=== PATIENT | female | born 1965 | race Caucasian/White ===

== ENCOUNTER → 2020-10-05 | Day surgery (SDC) | payer OTHER ==
[2020-10-03 14:52] LABS: BASOPHILS # (AUTO) 0.1 (0.0-0.1); BASOPHILS % 1.2 % (0.0-1.0); EOSINOPHILS # (AUTO) 0.2 (0.0-0.4); EOSINOPHILS % 2.3 % (0.0-6.0); HEMATOCRIT 45.5 % (34.2-44.1); HEMOGLOBIN 15.2 g/dL (12.0-16.0); LYMPHOCYTES # (AUTO) 3.2 (1.0-3.2); LYMPHOCYTES % 30.9 % (18.0-39.1); MEAN CORPUSCULAR HEMOGLOBIN 29.9 pg (28-32); MEAN CORPUSCULAR HGB CONC 33.4 g/dL (31-35); MEAN CORPUSCULAR VOLUME 89.6 fL (81-99); MONOCYTES # (AUTO) 0.7 (0.2-0.8); MONOCYTES % 6.9 % (4.4-11.3); NEUTROPHILS % 58.3 % (38.7-80.0); PLATELET COUNT 231 x10e3/uL (140-360); RED BLOOD COUNT 5.08 x10e6/uL (3.6-5.1); RED CELL DISTRIBUTION WIDTH 11.9 % (11.7-14.4)
[2020-10-03 15:09] LABS: ANION GAP 14.1 mmol/L (8-16); BLOOD UREA NITROGEN 9 mg/dL (7-26); BUN/CREATININE RATIO 11 (6-25); CALCIUM 9.5 mg/dL (8.4-10.2); CARBON DIOXIDE 28 mmol/L (22-29); CHLORIDE 98 mmol/L (98-107); CREATININE, SERUM 0.84 mg/dL (0.57-1.11); EST GLOMERULAR FILTRATION RATE > 60 ML/MIN (60-); GLUCOSE 230 mg/dL (74-118); POTASSIUM 4.1 mmol/L (3.5-5.1); SODIUM 136 mmol/L (136-145)
[~2020-10-05] MED LIST: ADVIL200 M1 PO; AUGMENTIN 875-1 EACH PO; BUPIVACAINE HCL 0.5% INJ 30 ML VIAL INJ ONE; CEFAZOLIN SOD 1 GM/NS 50ML 100 ML IV ONE; DEXAMETHASONE SOD PHOS INJ 4 MG/ML VIAL ONE; DIOVAN HCT 80-1 EACH PO; FENTANYL CITRATE/PF 100MCG/2 ML INJ ONE; FUROSEMIDE40 MG PO; GLYCOPYRROLATE INJ 0.2 MG/ML VIAL ONE; KETOROLAC TROMETHAMINE 30 MG/ML VIAL ONE; LIDOCAINE HCL 2% LOCAL INJ 5 ML SDV VIAL INJ ONE; METOCLOPRAMIDE HCL 10 MG/2ML VIAL ONE; MIDAZOLAM HCL 2 MG/2 ML VIAL ONE; MULTI-VITAMIN1 EACH PO; NEOSTIGMINE 1 MG/ML 10ML VIAL ONE; ONDANSETRON HCL INJ 2MG/ML 2ML 2 MG/ML VIAL ONE; PHENTERMINE H37.5 M1 PO; PREMARIN0.625 MG PO; PROMETHAZINE HCL (IM) 25 MG/ML VIAL IM ONE; PROPOFOL IV EMULSION 10 MG/ML 20 ML VIAL ONE; ROCURONIUM BROMIDE 10 MG/ML 5ML VIAL IV ONE; SEVOFLURANE INHAL SOLN 250 ML PEN BTL ONE; TYLENOL EXTRA500 MG PO; VALSARTAN-HCTZ1 EACH PO; ZINC SULFATE220 M1 PO
[2020-10-05 14:40] VITALS: BP 123/77
== END | disposition home or self-care (01) ==
LOC: OR 06:28
PROVIDERS: ATTEND Podiatrist Foot Surgery
DX: M77.32 Calcaneal spur, left foot (principal); S86.012A Strain of left Achilles tendon, initial encounter; J42 Unspecified chronic bronchitis; I10 Essential (primary) hypertension; N20.0 Calculus of kidney; I49.8 Other specified cardiac arrhythmias; X58.XXXA Exposure to other specified factors, initial encounter; Z01.810 Encounter for preprocedural cardiovascular examination; Z01.812 Encounter for preprocedural laboratory examination; Z01.818 Encounter for other preprocedural examination; Z20.828 Contact with and (suspected) exposure to other viral communicable diseases; Z86.718 Personal history of other venous thrombosis and embolism
CPT/HCPCS: 27650; 27687; 28118; 36415; 71046; 80048; 85025; 93005; J0690; J1100; J1885; J2001; J2250; J2405; J2550; J2704; J2710; J2765; J3010; Q4150; U0002; 76000

== ENCOUNTER 2024-06-21 01:43 | Inpatient (IN) | payer BC ==
[2024-06-21] VITALS (12 sets, daily range): BP systolic 97–116; BP diastolic 52–84; PULSE 70–123; RESP 18–22; TEMP 97.9–100.4; O2SAT 94–100
[~2024-06-21] VITALS: Ht 157.5 cm; Wt 113.9 kg
[~2024-06-21 01:43] MED LIST changes: +ALBUTEROL0.63 MG/3 INH; -BUPIVACAINE HCL 0.5% INJ 30 ML VIAL INJ ONE; -CEFAZOLIN SOD 1 GM/NS 50ML 100 ML IV ONE; +CRESTOR10 MG PO; -DEXAMETHASONE SOD PHOS INJ 4 MG/ML VIAL ONE; -FENTANYL CITRATE/PF 100MCG/2 ML INJ ONE; -GLYCOPYRROLATE INJ 0.2 MG/ML VIAL ONE; +JARDIANCE25 MG PO; -KETOROLAC TROMETHAMINE 30 MG/ML VIAL ONE; -LIDOCAINE HCL 2% LOCAL INJ 5 ML SDV VIAL INJ ONE; -METOCLOPRAMIDE HCL 10 MG/2ML VIAL ONE; -MIDAZOLAM HCL 2 MG/2 ML VIAL ONE; +MOUNJARO5 MG/0.5 M SC; -NEOSTIGMINE 1 MG/ML 10ML VIAL ONE; -ONDANSETRON HCL INJ 2MG/ML 2ML 2 MG/ML VIAL ONE; -PROMETHAZINE HCL (IM) 25 MG/ML VIAL IM ONE; -PROPOFOL IV EMULSION 10 MG/ML 20 ML VIAL ONE; -ROCURONIUM BROMIDE 10 MG/ML 5ML VIAL IV ONE; -SEVOFLURANE INHAL SOLN 250 ML PEN BTL ONE; +SYMBICORT 16010.2 GM INH; +VITAMIN C1000 MG PO; +ZETIA10 MG PO
[2024-06-21] MEDS ORDERED: KETOROLAC TROMETHAMINE 30 MG/ML VIAL IV STA (01:46)
[2024-06-21] MEDS: ONDANSETRON HCL INJ 2MG/ML 2ML 2 MG/ML VIAL IV STA (02:00)
[2024-06-21 02:03] LABS: BASOPHILS # (AUTO) 0.1 (0.0-0.1); BASOPHILS % 0.5 % (0.0-1.0); EOSINOPHILS # (AUTO) 0.1 (0.0-0.4); EOSINOPHILS % 0.3 % (0.0-6.0); HEMATOCRIT 50.8 % (34.2-44.1); HEMOGLOBIN 16.7 g/dL (12.0-16.0); LYMPHOCYTES # (AUTO) 2.7 (1.0-3.2); LYMPHOCYTES % 15.6 % (18.0-39.1); MEAN CORPUSCULAR HEMOGLOBIN 28.8 pg (28-32); MEAN CORPUSCULAR HGB CONC 32.9 g/dL (31-35); MEAN CORPUSCULAR VOLUME 87.7 fL (81-99); MONOCYTES # (AUTO) 1.2 (0.2-0.8); MONOCYTES % 6.7 % (4.4-11.3); NEUTROPHILS # (AUTO) 13.2 (2.1-6.9); NEUTROPHILS % 76.6 % (38.7-80.0); PLATELET COUNT 246 x10e3/uL (140-360); RED BLOOD COUNT 5.79 x10e6/uL (3.6-5.1); RED CELL DISTRIBUTION WIDTH 13.6 % (11.7-14.4); WHITE BLOOD COUNT 17.28 x10e3/uL (4.8-10.8)
[2024-06-21] MEDS: Morphine 4mg INJECTION 4 MG/ML INJ IV ONE (02:14)
[2024-06-21 02:19] LABS: ALBUMIN 4.2 g/dL (3.5-5.0); ALBUMIN/GLOBULIN RATIO 1.2 (0.8-2.0); ANION GAP 17.8 mmol/L (8-16); BILIRUBIN,TOTAL 1.2 mg/dL (0.2-1.2); CALCIUM 10.4 mg/dL (8.4-10.2); CREATININE, SERUM 1.18 mg/dL (0.57-1.11); POTASSIUM 3.8 mmol/L (3.5-5.1); TOTAL PROTEIN 7.6 g/dL (6.5-8.1)
[2024-06-21 02:20] LABS: BILIRUBIN,URINE NEGATIVE (NEGATIVE); CLARITY,URINE CLOUDY (CLEAR); COLOR,URINE YELLOW (YELLOW); GLUCOSE, URINE >=1000 (NEGATIVE); KETONES,URINE NEGATIVE (NEGATIVE); LEUKOCYTE ESTERASE ,URINE TRACE (NEGATIVE); NITRITE,URINE NEGATIVE (NEGATIVE); PH,URINE 5.5 (5 - 7); PROTEIN,URINE DIPSTICK 1+ (NEGATIVE); URINE UROBILINOGEN 0.2 mg/dL (0.2 - 1)
[2024-06-21 02:24] LABS: RBC,URINE >50 /HPF (0-5); WBC,URINE (MAN) >50 /HPF (0-5)
[2024-06-21 02:25] LABS: BACTERIA,URINE MANY /HPF; EPITHELIAL CELLS,URINE MODERATE /LPF
[2024-06-21] MEDS ORDERED: CEFTRIAXONE 1 GM VIAL ONE (02:42)
[2024-06-21] MEDS: HYDROMORPHONE 1MG/1ML INJ IV STA (03:52)
[2024-06-21] MEDS ORDERED: DEXTROSE 50% SYRINGE 50 ML IV PRN ×2 (04:15→09:15)
[2024-06-21] MEDS: SODIUM CHLORIDE 0.9% 1000ML 1,000 ML IV SCH (04:40)
[2024-06-21] MEDS ORDERED: RANOLAZINE ER500 MG PO (06:03)
[2024-06-21] MEDS ORDERED: MOUNJARO10 MG/0.5 SC (06:03)
[2024-06-21] MEDS ORDERED: CLOPIDOGREL75 MG PO (06:03)
[2024-06-21] MEDS ORDERED: TRELEGY ELLIPT1 EACH (06:03)
[2024-06-21] MEDS ORDERED: SYMBICORT 16010.2 GM INH (06:03)
[2024-06-21] MEDS ORDERED: AIRSUPRA 90-810.7 GM (06:03)
[2024-06-21] MEDS ORDERED: ASPIRIN81 MG PO (06:03)
[2024-06-21] MEDS ORDERED: NITROGLYCERIN0.4 MG SL (06:03)
[2024-06-21] MEDS ORDERED: INSULIN REGULAR, HUMAN 100 UNIT/1 ML SQ SCH (07:30)
[2024-06-21] MEDS ORDERED: MELATONIN 5 MG TABLET PO PRN (09:00)
[2024-06-21] MEDS ORDERED: ACETAMINOPHEN 325 MG TAB PO PRN (09:00)
[2024-06-21] MEDS ORDERED: NITROGLYCERIN 0.4 MG SUBL SL PRN (09:00)
[2024-06-21] MEDS ORDERED: FAMOTIDINE 20 MG TAB PO PRN (09:00)
[2024-06-21] MEDS ORDERED: BUDESONIDE/FORMOTEROL 160/4.5MCG INHALER INH PRN (09:00)
[2024-06-21] MEDS ORDERED: Morphine 4mg INJECTION 4 MG/ML INJ IV PRN (09:00)
[2024-06-21] MEDS ORDERED: FUROSEMIDE 20 MG TAB PO PRN (09:00)
[2024-06-21] MEDS ORDERED: SENNA-S TABLET PO PRN (09:00)
[2024-06-21] MEDS ORDERED: PNEUMOCOCCAL VACCINE POLYVALENT 23 MCG/0.5 ML VIAL IM SCH (10:00)
[2024-06-21] MEDS: EZETIMIBE 10 MG TAB PO SCH (10:07)
[2024-06-21] MEDS: TAMSULOSIN HCL 0.4 MG CAP PO SCH (10:07)
[2024-06-21] MEDS: RANOLAZINE 500 MG TABSR PO SCH (10:07)
[2024-06-21] MEDS: ACETAMINOPHEN/CODEINE 300MG - 30MG TAB PO ONE (10:09)
[2024-06-21] MEDS: INSULIN REGULAR, HUMAN 100 UNIT/1 ML SQ SCH (13:30)
[2024-06-21] MEDS: ONDANSETRON HCL INJ 2MG/ML 2ML 2 MG/ML VIAL IV PRN (18:46)
[2024-06-21] MEDS: ACETAMINOPHEN/CODEINE 300MG - 30MG TAB PO PRN (18:46)
[2024-06-21] MEDS ORDERED: SIMVASTATIN 40 MG TAB PO SCH (21:00)
[2024-06-21] MEDS: CRESTOR 10MG PO SCH (21:00)
[2024-06-22] VITALS (11 sets, daily range): BP systolic 88–113; BP diastolic 57–65; PULSE 65–102; RESP 16–20; TEMP 97.8–99.8; O2SAT 97–100
[2024-06-22 05:28] LABS: BASOPHILS # (AUTO) 0.1 (0.0-0.1); BASOPHILS % 0.4 % (0.0-1.0); EOSINOPHILS # (AUTO) 0.1 (0.0-0.4); EOSINOPHILS % 0.4 % (0.0-6.0); HEMATOCRIT 40.1 % (34.2-44.1); HEMOGLOBIN 12.9 g/dL (12.0-16.0); LYMPHOCYTES # (AUTO) 1.6 (1.0-3.2); LYMPHOCYTES % 12.9 % (18.0-39.1); MEAN CORPUSCULAR HEMOGLOBIN 28.8 pg (28-32); MEAN CORPUSCULAR HGB CONC 32.2 g/dL (31-35); MEAN CORPUSCULAR VOLUME 89.5 fL (81-99); MONOCYTES # (AUTO) 1.3 (0.2-0.8); MONOCYTES % 10.1 % (4.4-11.3); NEUTROPHILS # (AUTO) 9.4 (2.1-6.9); NEUTROPHILS % 75.9 % (38.7-80.0); PLATELET COUNT 128 x10e3/uL (140-360); RED BLOOD COUNT 4.48 x10e6/uL (3.6-5.1); RED CELL DISTRIBUTION WIDTH 14.1 % (11.7-14.4); WHITE BLOOD COUNT 12.44 x10e3/uL (4.8-10.8)
[2024-06-22 05:59] LABS: ALBUMIN 2.9 g/dL (3.5-5.0); ALBUMIN/GLOBULIN RATIO 1.1 (0.8-2.0); ANION GAP 11.5 mmol/L (8-16); BILIRUBIN,TOTAL 1.1 mg/dL (0.2-1.2); CALCIUM 8.5 mg/dL (8.4-10.2); CREATININE, SERUM 1.27 mg/dL (0.57-1.11); POTASSIUM 3.5 mmol/L (3.5-5.1); TOTAL PROTEIN 5.6 g/dL (6.5-8.1)
[2024-06-22] MEDS: HYDROMORPHONE 1MG/1ML INJ IV PRN (07:30)
[2024-06-22] MEDS: ACETAMINOPHEN 1000 MG/100 ML IV PRN (10:40)
[2024-06-22] MEDS ORDERED: ROCURONIUM BROMIDE 10 MG/ML 5ML VIAL IV ONE (12:13)
[2024-06-22] MEDS ORDERED: SUCCINYLCHOLINE CHLORIDE 20 MG/ML 10ML VIAL ONE (12:13)
[2024-06-22] MEDS ORDERED: METOCLOPRAMIDE HCL 10 MG/2ML VIAL ONE (12:13)
[2024-06-22] MEDS ORDERED: ONDANSETRON HCL INJ 2MG/ML 2ML 2 MG/ML VIAL ONE (12:13)
[2024-06-22] MEDS ORDERED: ACETAMINOPHEN 1000 MG/100 ML IV ONE (12:13)
[2024-06-22] MEDS ORDERED: PROPOFOL IV EMULSION 10 MG/ML 20 ML VIAL ONE (12:13)
[2024-06-22] MEDS ORDERED: DEXAMETHASONE SOD PHOS INJ 4 MG/ML SDV ONE (12:13)
[2024-06-22] MEDS ORDERED: LIDOCAINE HCL 2% LOCAL INJ 5 ML SDV VIAL INJ ONE (12:13)
[2024-06-22] MEDS ORDERED: SEVOFLURANE INHAL SOLN 250 ML PEN BTL ONE (12:13)
[2024-06-22] MEDS ORDERED: FENTANYL CITRATE/PF 100MCG/2 ML INJ ONE (12:45)
[2024-06-22] MEDS ORDERED: MIDAZOLAM HCL 2 MG/2 ML VIAL ONE (12:45)
[2024-06-22] MEDS ORDERED: IOPAMIDOL 610MG/1ML 300 MG/ML VIAL IV ONE (13:43)
[2024-06-22] MEDS ORDERED: SUGAMMADEX SODIUM 200 MG/2 ML VIAL IV ONE (15:07)
[2024-06-22] MEDS: FENTANYL CITRATE/PF 100MCG/2 ML INJ ONE (15:26)
[2024-06-22] MEDS: KETOROLAC TROMETHAMINE 30 MG/ML VIAL ONE (15:43)
[2024-06-23] VITALS (11 sets, daily range): BP systolic 109–127; BP diastolic 58–67; PULSE 57–98; RESP 16–20; TEMP 97.8–98.3; O2SAT 96–100
[2024-06-23 06:13] LABS: BASOPHILS % 0.1 % (0.0-1.0); HEMATOCRIT 39.3 % (34.2-44.1); HEMOGLOBIN 12.5 g/dL (12.0-16.0); LYMPHOCYTES # (AUTO) 0.7 (1.0-3.2); LYMPHOCYTES % 6.3 % (18.0-39.1); MEAN CORPUSCULAR HEMOGLOBIN 28.7 pg (28-32); MEAN CORPUSCULAR HGB CONC 31.8 g/dL (31-35); MEAN CORPUSCULAR VOLUME 90.1 fL (81-99); MONOCYTES # (AUTO) 0.4 (0.2-0.8); MONOCYTES % 3.2 % (4.4-11.3); NEUTROPHILS # (AUTO) 9.9 (2.1-6.9); NEUTROPHILS % 89.9 % (38.7-80.0); PLATELET COUNT 125 x10e3/uL (140-360); RED BLOOD COUNT 4.36 x10e6/uL (3.6-5.1); RED CELL DISTRIBUTION WIDTH 13.8 % (11.7-14.4); WHITE BLOOD COUNT 11.03 x10e3/uL (4.8-10.8)
[2024-06-23 07:02] LABS: ALBUMIN 2.8 g/dL (3.5-5.0); ALBUMIN/GLOBULIN RATIO 0.9 (0.8-2.0); BILIRUBIN,TOTAL 0.5 mg/dL (0.2-1.2); CREATININE, SERUM 0.88 mg/dL (0.57-1.11)
[2024-06-23 09:00] LABS: POTASSIUM 3.8 mmol/L (3.5-5.1)
[2024-06-23] MEDS ORDERED: VESICARE5 MG PO (09:19)
[2024-06-23] MEDS ORDERED: CIPRO250 MG PO (09:19)
[2024-06-23] MEDS ORDERED: HYDROCODON-ACE1 EA11 PO (09:22)
[2024-06-23] MEDS: SOLIFENACIN SUCCINATE 5 MG TAB PO SCH (10:08)
[2024-06-23 10:24] LABS: ANION GAP 12.8 mmol/L (8-16)
[2024-06-23] MEDS ORDERED: HYDROMORPHONE 1MG/1ML INJ IV PRN (21:30)
[2024-06-23] MEDS: HYDROCODONE/APAP 5MG-325MG TAB PO PRN (21:35)
[2024-06-24 03:13] VITALS: BP 116/73; PULSE 58; RESP 18; TEMP 97.9; O2SAT 96
[2024-06-24 05:51] LABS: BASOPHILS % 0.2 % (0.0-1.0); HEMATOCRIT 40.6 % (34.2-44.1); HEMOGLOBIN 12.8 g/dL (12.0-16.0); LYMPHOCYTES # (AUTO) 1.5 (1.0-3.2); LYMPHOCYTES % 11.1 % (18.0-39.1); MEAN CORPUSCULAR HEMOGLOBIN 28.8 pg (28-32); MEAN CORPUSCULAR HGB CONC 31.5 g/dL (31-35); MEAN CORPUSCULAR VOLUME 91.2 fL (81-99); MONOCYTES # (AUTO) 0.8 (0.2-0.8); MONOCYTES % 6.1 % (4.4-11.3); NEUTROPHILS # (AUTO) 10.7 (2.1-6.9); NEUTROPHILS % 82.1 % (38.7-80.0); PLATELET COUNT 165 x10e3/uL (140-360); RED BLOOD COUNT 4.45 x10e6/uL (3.6-5.1); RED CELL DISTRIBUTION WIDTH 13.9 % (11.7-14.4); WHITE BLOOD COUNT 13.04 x10e3/uL (4.8-10.8)
[2024-06-24 07:16] LABS: ALBUMIN 2.8 g/dL (3.5-5.0); BILIRUBIN,TOTAL 0.4 mg/dL (0.2-1.2); CREATININE, SERUM 0.8 mg/dL (0.57-1.11)
[2024-06-24 07:17] LABS: ALBUMIN/GLOBULIN RATIO 0.9 (0.8-2.0)
[2024-06-24 07:42] VITALS: PULSE 83; RESP 18; O2SAT 98
[2024-06-24 08:30] VITALS: BP 120/51; PULSE 53; RESP 17; TEMP 97.5; O2SAT 100
[2024-06-24 08:45] VITALS: BP 120/51; PULSE 53; RESP 17; TEMP 97.5; O2SAT 100
[2024-06-24 09:00] VITALS: BP 118/50
[2024-06-24 10:40] VITALS: PULSE 60; RESP 18; O2SAT 98
[2024-06-24 15:07] LABS: CALCIUM 8.9 mg/dL (8.4-10.2); POTASSIUM 4.1 mmol/L (3.5-5.1)
[2024-06-24 15:08] LABS: ANION GAP 15.1 mmol/L (8-16)
== END 2024-06-24 10:50 | disposition home or self-care (01) | DRG 660 ==
LOC: ER 01:47 → ERHOLD 04:12 → MED/SURG2 04:57
PROVIDERS: ADMIT Family Medicine Adult Medicine; ATTEND Family Medicine Adult Medicine
PROC: 0TC78ZZ Extirpation of Matter from Left Ureter, Via Natural or Artificial Opening Endoscopic (ICD-10-PCS; 2024-06-22)
PROC: BT171ZZ Fluoroscopy of Left Ureter using Low Osmolar Contrast (ICD-10-PCS; 2024-06-22)
PROC: 0T778DZ Dilation of Left Ureter with Intraluminal Device, Via Natural or Artificial Opening Endoscopic (ICD-10-PCS; principal; 2024-06-22 14:13)
DX: N13.6 Pyonephrosis (principal); I11.0 Hypertensive heart disease with heart failure; I50.30 Unspecified diastolic (congestive) heart failure; Z68.42 Body mass index [BMI] 45.0-49.9, adult; Z16.24 Resistance to multiple antibiotics; N17.9 Acute kidney failure, unspecified; Z99.81 Dependence on supplemental oxygen; E86.0 Dehydration; I25.10 Atherosclerotic heart disease of native coronary artery without angina pectoris; E11.9 Type 2 diabetes mellitus without complications; E66.01 Morbid (severe) obesity due to excess calories; J42 Unspecified chronic bronchitis; E83.52 Hypercalcemia; G47.33 Obstructive sleep apnea (adult) (pediatric); E78.5 Hyperlipidemia, unspecified; B96.89 Other specified bacterial agents as the cause of diseases classified elsewhere; Z79.02 Long term (current) use of antithrombotics/antiplatelets; Z79.82 Long term (current) use of aspirin; Z79.51 Long term (current) use of inhaled steroids; Z79.85 Long-term (current) use of injectable non-insulin antidiabetic drugs; Z79.84 Long term (current) use of oral hypoglycemic drugs; Z90.711 Acquired absence of uterus with remaining cervical stump; Z95.5 Presence of coronary angioplasty implant and graft; Z82.49 Family history of ischemic heart disease and other diseases of the circulatory system
CPT/HCPCS: 36415; 74018; 74176; 74420; 80053; 81001; 85025; 87040; 87071; 87086; 87186; 87205; 93005; 93306; 94660; 94799; 99252; 99284; C1758; C1766; C1769; C2617; J0330; J0696; J1100; J1170; J1885; J2001; J2250; J2270; J2405; J2765; J7030